=== PATIENT | male | born 1980 | race Hispanic/Latino ===

== ENCOUNTER 2017-10-11 17:21 | Inpatient (IN) | payer SELFPAY ==
[~2017-10-11] VITALS: Ht 172.7 cm; Wt 99.9 kg
[~2017-10-11 17:21] MED LIST: CLONAZEPAM1 MG PO; HYDROCHLOROTHIA25 MG
[2017-10-11] MEDS ORDERED: ONDANSETRON HCL INJ 2 MG/ML VIAL IV STA (17:41)
[2017-10-11] MEDS ORDERED: FAMOTIDINE 20 MG/2 ML VIAL IV STA (17:41)
[2017-10-11] MEDS ORDERED: LOPERAMIDE HCL 2 MG CAP PO ONE (17:45)
[2017-10-11] MEDS ORDERED: SODIUM CHLORIDE 0.9% 1000ML 1,000 ML IV ONE (17:45)
[2017-10-11] MEDS ORDERED: ONDANSETRON HCL INJ 2 MG/ML VIAL ONE ×2 (17:47→17:50)
[2017-10-11 17:49] LABS: BASOPHILS % 0.3 % (0.0-1.0); EOSINOPHILS # (AUTO) 0.2 (0.0-0.4); EOSINOPHILS % 3.1 % (0.0-6.0); HEMATOCRIT 51.1 % (38.2-49.6); HEMOGLOBIN 17.7 g/dL (14.0-18.0); LYMPHOCYTES % 14.2 % (18.0-39.1); MEAN CORPUSCULAR HGB CONC 34.6 g/dL (31-35); MEAN CORPUSCULAR VOLUME 80.9 fL (81-99); MONOCYTES # (AUTO) 0.6 (0.2-0.8); MONOCYTES % 8.7 % (4.4-11.3); NEUTROPHILS # (AUTO) 5.2 (2.1-6.9); NEUTROPHILS % 73.4 % (38.7-80.0); PLATELET COUNT 245 x10e3/uL (140-360); RED BLOOD COUNT 6.32 x10e6/uL (4.3-5.7); RED CELL DISTRIBUTION WIDTH 12.9 % (11.7-14.4)
[2017-10-11] MEDS ORDERED: SODIUM CHLORIDE 0.9% 1000ML 1,000 ML ONE (17:50)
[2017-10-11 18:00] LABS: ALANINE AMINOTRANSFERASE 37 IU/L (0-55); ALBUMIN 4.2 g/dL (3.5-5.0); ALKALINE PHOSPHATASE 85 IU/L (40-150); ANION GAP 11.9 mmol/L (8-16); BLOOD UREA NITROGEN 17 mg/dL (7-26); BUN/CREATININE RATIO 17 (6-25); CALCIUM 9.4 mg/dL (8.4-10.2); CARBON DIOXIDE 25 mmol/L (22-29); CHLORIDE 105 mmol/L (98-107); CREATININE, SERUM 1.03 mg/dL (0.72-1.25); EST GLOMERULAR FILTRATION RATE > 60 ML/MIN (60-); GLUCOSE 99 mg/dL (74-118); LIPASE 14 U/L (8-78); POTASSIUM 3.9 mmol/L (3.5-5.1); SODIUM 138 mmol/L (136-145)
--- NOTE | 2017-10-11 18:35 | Diagnostic Imaging Report ---
PROCEDURE:X-RAY ABDOMEN, ACUTE SERIES COMPARISON:None. INDICATIONS:DIFFUSE ABDOMEN PAIN, NAUSEA, VOMITING, DIARRHEA FINDINGS: Multiple air-fluid levels in the midabdomen within small bowel loops with multiple stairstep appearance. There are no masses or abnormal calcifications. Visualized portions of the lung bases are clear. There is no evidence of free air. No acute osseous abnormalities are present. CONCLUSION: Small bowel obstruction. Dictated by: Cesar Castellanos M.D. on 10/11/2017 at 18:35 Electronically approved by: Cesar Castellanos M.D. on 10/11/2017 at 18:35
[2017-10-11] MEDS ORDERED: DIATRIZOATE MEGL/DIATRIZOA SOD 30 ML BTL PO ONE (19:15)
--- NOTE | 2017-10-11 20:37 | Diagnostic Imaging Report ---
EXAM: Right Upper Quadrant Ultrasound INDICATION: Abdominal pain, nausea vomiting, elevated bilirubin COMPARISON: None. TECHNIQUE: Transverse and longitudinal images of the right upper abdomen were obtained. FINDINGS: Limited examination due to overlying bowel gas. Liver: Size: 15.3 cm in the right midclavicular line, normal Appearance: Increased echogenicity, smooth contour Mass: No focal masses Gallbladder: Stones/Sludge: None Wall: 0.2 cm Appearance: No wall thickening, pericholecystic fluid or hydrops. Sonographic Tracy's Sign: Negative Bile Ducts: Intrahepatic Ducts: No dilatation Extrahepatic Ducts: Common bile duct measures 0.4 cm, no dilatation Pancreas: The pancreas is poorly visualized due to overlying bowel gas. Kidneys: Length: Right 10.7 cm Echogenicity: Normal Collecting System: No hydronephrosis Stone: None Cyst/Mass: None Vessels: Aorta: Visualized portions are normal Inferior Vena Cava: Visualized portions are normal Main Portal Vein: 1.0 cm, normal size with hepatopetal flow. Free Fluid: No ascites or pleural effusion IMPRESSION: No cholelithiasis. No gallbladder wall thickening or pericholecystic fluid. Hepatic steatosis. Signed by: Dr. Emmanuel Parr M.D. on 10/11/2017 8:34 PM
--- NOTE | 2017-10-11 21:45 | Diagnostic Imaging Report ---
EXAM: CT ABDOMEN/PELVIS WO DATE: 10/11/2017 7:02 PM INDICATION: Abdominal pain, nausea, vomiting, diarrhea COMPARISON: 08/27/2016 TECHNIQUE: The abdomen and pelvis were scanned using a multidetector helical scanner. Coronal and sagittal reformations were obtained. Routine protocol performed. IV Contrast: 0 ml Isovue 370 FINDINGS: Lack of IV contrast decreases sensitivity in evaluating abdominal and pelvic organs. Oral contrast was administered. LOWER THORAX: Stable incidental 3 mm right lower lobe nodule and calcified granuloma. LIVER/BILIARY: No masses. No ductal dilatation. GALLBLADDER: Unremarkable SPLEEN: Unremarkable PANCREAS: Unremarkable ADRENALS: No nodules KIDNEYS: Punctate nonobstructing bilateral renal calculi. No hydronephrosis. GI TRACT: Mild gastric and proximal small bowel dilation with relative transition point anteriorly in the infraumbilical mid abdomen (image 64). Diverticulosis. Normal appendix. VESSELS: Unremarkable PERITONEUM/RETROPERITONEUM: No free air or fluid LYMPH NODES: No lymphadenopathy REPRODUCTIVE ORGANS/BLADDER: Unremarkable SOFT TISSUES: Stable tiny fat-containing umbilical hernia BONES: No suspicious bone lesions. IMPRESSION: Findings of partial/early small bowel obstruction, with transition point anteriorly in the lower mid abdomen. Signed by: Dr Neisha Metzger MD on 10/11/2017 9:42 PM
[2017-10-11] MEDS ORDERED: FAMOTIDINE 20 MG/2 ML VIAL IV ONE (21:46)
[2017-10-11] MEDS ORDERED: MORPHINE SULFATE 2 MG/ML SYR IV PRN (22:00)
[2017-10-11] MEDS ORDERED: METRONIDAZOLE 500MG/NS 100ML IV SCH (22:00)
[2017-10-11] MEDS ORDERED: ONDANSETRON HCL INJ 2 MG/ML VIAL IV PRN (22:00)
[2017-10-11] MEDS ORDERED: CEFOXITIN 1GM/ DEXTROSE 50ML ML IV SCH (22:00)
--- OUTSIDE RECORDS SUMMARY | 2017-10-11 22:03 | XMS REPORT ---
[facility] Address Unknown Phone Unavailable Care Team Providers Care Financial Advisor Name Role Phone MICHAEL CARLOS Unavailable Unavailable Problems This patient has no known problems. Allergies, Adverse Reactions, Alerts This patient has no known allergies or adverse reactions. Medications This patient has no known medications. Results Test Description Test Time Test Comments Text Results Atomic Results Result Comments CT ABDOMEN/PELVIS WO [place] [address] Patient Name: FELIX NARAYANAN MR #: [id number] : 1980 Age/Sex: 37/M Req # : [id number] Adm Physician: Ordered by: ELENA CORNEJO MD Report # : [id number] Location: ER Room/Bed: Procedure: [id number] CT/CT ABDOMEN/PELVIS WO Exam Date: Exam Time : REPORT STATUS: Signed EXAM: CT ABDOMEN/PELVIS WO DATE: 10/11/2017 7 :02 PM INDICATION: Abdominal pain, nausea, vomiting, diarrhea COMPARISON : 08/27/2016 TECHNIQUE: The abdomen and pelvis were scanned using a multidetector helical scanner. Coronal and sagittal reformations were obtained. Routine protocol performed. IV Contrast: 0 ml Isovue 370 FINDINGS: Lack of IV contrast decreases sensitivity in evaluating abdominal and pelvic organs. Oral contrast was administered. LOWER THORAX: Stable incidental 3 mm right lower lobe nodule and calcified granuloma. LIVER/ BILIARY: No masses. No ductal dilatation. GALLBLADDER: Unremarkable SPLEEN: Unremarkable PANCREAS: Unremarkable ADRENALS: No nodules KIDNEYS: Punctate nonobstructing bilateral renal calculi. No hydronephrosis. GI TRACT: Mild gastric and proximal small bowel dilation with relative transition point anteriorly in the infraumbilical mid abdomen (image 64). Diverticulosis. Normal appendix. VESSELS: Unremarkable PERITONEUM/ RETROPERITONEUM: No free air or fluid LYMPH NODES: No lymphadenopathy REPRODUCTIVE ORGANS/BLADDER: Unremarkable SOFT TISSUES: Stable tiny fat- containing umbilical hernia BONES: No suspicious bone lesions. IMPRESSION : Findings of partial/early small bowel obstruction, with transition point anteriorly in the lower mid abdomen. Signed by: Dr Dulce Metzger MD on 9:42 PM Dictated By: DULCE METZGER MD 41 Transcribed By: RUPA on 10/11/172141 COPY TO: ELENA CORNEJO MD ABDOMEN ACUTE SERIES W/PA CXR [place] [address] Patient Name: FELIX NARAYANAN MR #: [id number] : 1980 Age/Sex: 37/M Req #: [id number] Adm Physician: Ordered by: MICHAEL CARLOS MD Report #: [id number] Location: ER Room/Bed: Procedure: [id number] DX/ABDOMEN ACUTE SERIES W/PA CXR Exam Date: 10/11/17 Exam Time: 1815 REPORT STATUS: Signed PROCEDURE : X-RAY ABDOMEN, ACUTE SERIES COMPARISON: None. INDICATIONS: DIFFUSE ABDOMEN PAIN, NAUSEA, VOMITING, DIARRHEA FINDINGS: Multiple air-fluid levels in the midabdomen within small bowel loops with multiple stairstep appearance. There are no masses or abnormal calcifications. Visualized portions of the lung bases are clear. There is no evidence of free air. No acute osseous abnormalities are present. CONCLUSION: Small bowel obstruction. Dictated by: Kb Herr M.D. on 10/11/2017 at 18:35 Electronically approved by: Kb Herr M.D. on 2017 at 18:35 Dictated By: KB HERR MD 34 Transcribed By: ED on 10/11/171834 COPY TO: MICHAEL CARLOS MD US GALLBLADDER [place] [address] Patient Name: FELIX NARAYANAN MR #: [id number] : 1980 Age/Sex: 37/M Req #: [id number] Adm Physician: Ordered by: MICHAEL CARLOS MD Report #: [id number] Location: ER Room/Bed: Procedure: [id number] US/US GALLBLADDER Exam Date: 10/11/17 Exam Time: 1957 REPORT STATUS: Signed EXAM: Right Upper Quadrant Ultrasound INDICATION: Abdominal pain, nausea vomiting, elevated bilirubin COMPARISON: None. TECHNIQUE: Transverse and longitudinal images of the right upper abdomen were obtained. FINDINGS: Limited examination due to overlying bowel gas. Liver: Size: 15.3 cm in the right midclavicular line, normal Appearance: Increased echogenicity, smooth contour Mass: No focal masses Gallbladder: Stones/Sludge: None Wall: 0.2 cm Appearance : No wall thickening, pericholecystic fluid or hydrops. Sonographic Tracy' s Sign: Negative Bile Ducts: Intrahepatic Ducts: No dilatation Extrahepatic Ducts: Common bile duct measures 0.4 cm, no dilatation Pancreas: The pancreas is poorly visualized due to overlying bowel gas. Kidneys: Length: Right 10.7 cm Echogenicity: Normal Collecting System: No hydronephrosis Stone: None Cyst/Mass: None Vessels: Aorta: Visualized portions are normal Inferior Vena Cava: Visualized portions are normal Main Portal Vein: 1.0 cm, normal size with hepatopetal flow. Free Fluid: No ascites or pleural effusion IMPRESSION: No cholelithiasis. No gallbladder wall thickening or pericholecystic fluid. Hepatic steatosis. Signed by: Dr. Sumit Parr M.D. on 10/11/2017 8:34 PM Dictated By: SUMIT PARR MD 33 Transcribed By: RUPA on 10/11/172033 COPY TO: MICHAEL CARLOS MD
[2017-10-11] MEDS ORDERED: BENZOCAINE/TETRACAINE/BUTAMBEN AERO SPRAY 56 GM CAN TOP ONE (22:30)
[2017-10-11] MEDS: CEFOXITIN 1GM/ DEXTROSE 50ML 50 ML IV SCH (23:31)
[2017-10-11] MEDS: SODIUM CHLORIDE 0.9% 1000ML 1,000 ML IV SCH (23:31)
[2017-10-11] MEDS: SODIUM CHLORIDE 0.9% 250ML IRRIG IR SCH (23:37)
[2017-10-12] VITALS (8 sets, daily range): BP systolic 126–140; BP diastolic 69–94
[2017-10-12] MEDS: METRONIDAZOLE 500MG/NS 100ML 100 ML IV SCH ×3 (01:00→11:26)
[2017-10-12] MEDS: SODIUM CHLORIDE 0.9% 250ML IRRIG IR SCH ×6 (03:25→22:00)
[2017-10-12] MEDS: CEFOXITIN 1GM/ DEXTROSE 50ML 50 ML IV SCH ×3 (06:48→21:52)
[2017-10-12] MEDS: SODIUM CHLORIDE 0.9% 1000ML 1,000 ML IV SCH ×3 (06:49→21:57)
[2017-10-12 07:23] LABS: BASOPHILS % 0.3 % (0.0-1.0); EOSINOPHILS # (AUTO) 0.1 (0.0-0.4); EOSINOPHILS % 2.1 % (0.0-6.0); HEMATOCRIT 45.3 % (38.2-49.6); HEMOGLOBIN 15.1 g/dL (14.0-18.0); LYMPHOCYTES # (AUTO) 1.7 (1.0-3.2); LYMPHOCYTES % 27.7 % (18.0-39.1); MEAN CORPUSCULAR HEMOGLOBIN 27.7 pg (28-32); MEAN CORPUSCULAR HGB CONC 33.3 g/dL (31-35); MEAN CORPUSCULAR VOLUME 83.1 fL (81-99); MONOCYTES # (AUTO) 0.8 (0.2-0.8); NEUTROPHILS # (AUTO) 3.6 (2.1-6.9); NEUTROPHILS % 57.6 % (38.7-80.0); PLATELET COUNT 216 x10e3/uL (140-360); RED BLOOD COUNT 5.45 x10e6/uL (4.3-5.7); RED CELL DISTRIBUTION WIDTH 13.2 % (11.7-14.4)
--- NOTE | 2017-10-12 07:43 | Consultation ---
DATE OF CONSULTATION: October 12, 2017 The patient is a 37-year-old male who presents with complaints of abdominal pain with diarrhea, and also nausea and vomiting one time. Patient says symptoms started yesterday, but they are better today. He says his pain is gone. He has no more nausea. He came to the emergency room where evaluation of x-rays revealed findings suggestive of partial small-bowel obstruction. Patient says he is passing flatus now. He has had no previous abdominal surgery. PAST MEDICAL HISTORY: The patient has a history of hypertension. MEDICATIONS: Clonazepam and hydrochlorothiazide. PAST SURGICAL HISTORY: He has had no previous surgery. ALLERGIES: SHRIMP. NO ALLERGIES TO MEDICATIONS. FAMILY HISTORY: Noncontributory. SOCIAL HISTORY: The patient does not smoke cigarettes or drink alcohol. REVIEW OF SYSTEMS: Is as stated above, otherwise was negative. He has had no fever. No weight loss. PHYSICAL EXAMINATION GENERAL: The patient is awake, alert and in no distress. VITALS: Normal. He is not tachycardic. HEENT: Reveals no scleral icterus. NECK: Has no masses. LUNGS: Equal breath sounds are clear bilaterally. CARDIAC: Regular rate and rhythm. No murmur. ABDOMEN: Soft. There is no tenderness. No mass. There are no signs of peritonitis. EXTREMITIES: Have no edema. Pulses are palpable. NEUROLOGIC: Intact. ASSESSMENT: This is a 37-year-old male with symptoms most suggestive of acute gastroenteritis although x-ray suggests small-bowel obstruction. Clinically, this does not appear to be the case. PLAN: Repeat the abdominal x-ray today. If the is improved, likely we can remove his NG tube and start him on a liquid diet. There are no findings to suggest acute surgical abdomen that would require immediate surgical intervention. Thank you for asking me to see Mr. Davis. Job#: [id number] SHAI
[2017-10-12 07:50] LABS: ALANINE AMINOTRANSFERASE 25 IU/L (0-55); ALBUMIN 3.4 g/dL (3.5-5.0); ALKALINE PHOSPHATASE 64 IU/L (40-150); ANION GAP 10.1 mmol/L (8-16); BILIRUBIN,DIRECT 0.7 mg/dL (0.0-0.5); BLOOD UREA NITROGEN 17 mg/dL (7-26); BUN/CREATININE RATIO 15 (6-25); CALCIUM 8.4 mg/dL (8.4-10.2); CARBON DIOXIDE 26 mmol/L (22-29); CHLORIDE 108 mmol/L (98-107); CREATININE, SERUM 1.17 mg/dL (0.72-1.25); EST GLOMERULAR FILTRATION RATE > 60 ML/MIN (60-); GLUCOSE 97 mg/dL (74-118); POTASSIUM 4.1 mmol/L (3.5-5.1); SODIUM 140 mmol/L (136-145)
[2017-10-12 08:06] LABS: PHOSPHORUS 3.6 MG/DL (2.3-4.7)
[2017-10-12] MEDS: FAMOTIDINE 20 MG/2 ML VIAL IV SCH ×2 (09:15→16:18)
--- NOTE | 2017-10-12 10:42 | Diagnostic Imaging Report ---
PROCEDURE:ABDOMEN COMP INCL UPR OR DECUB TECHNIQUE:Supine and upright views abdomen totaling 5 radiographs INDICATION:Small bowel obstruction COMPARISON:Patients [facility], CT, CT ABDOMEN/PELVIS WO, 10/11/2017, 20:45. FINDINGS: Nasogastric tube tip at the gastric antrum. Progression of enteric contrast to the rectum. Persistent distention of the jejunum with air-fluid level. Gaseous small bowel distention to 4.5 cm. No evidence of organomegaly or ascites. Irregular calcifications. Intact skeleton. CONCLUSION: Persistent small bowel distention with progression of enteric contrast to the rectum. Findings are most in keeping with partial small bowel obstruction. Dictated by: José Luis Li M.D. on 10/12/2017 at 10:43 Electronically approved by: José Luis Li M.D. on 10/12/2017 at 10:43
--- NOTE | 2017-10-12 22:37 | History and Physical ---
PRIMARY CARE PHYSICIAN: None CHIEF COMPLAINT: Abdominal pain, nausea, vomiting, and diarrhea. HISTORY OF PRESENT ILLNESS: This is a 37-year-old male with a history of nephrolithiasis, now developing midabdominal pain, sharp with nausea, vomiting and diarrhea. Therefore, he came to the hospital. Here he was found to have partial small-bowel obstruction and admitted for further evaluation and management. Denies any fever. PAST MEDICAL HISTORY: Nephrolithiasis. PAST SURGICAL HISTORY: None. ALLERGIES: PER ELECTRONIC MEDICAL RECORD. FAMILY HISTORY/SOCIAL HISTORY: Patient is single. Occasional alcohol. No cigarettes. MEDICATIONS: Per electronic medical record. REVIEW OF SYSTEMS: Denies any dizziness or chest pain. PHYSICAL EXAMINATION VITAL SIGNS: Reviewed. GENERAL: A tired-appearing man resting in bed with an NG tube in place. CARDIOVASCULAR: Normal S1 and S2. LUNGS: Moderate breath sounds. ABDOMEN: Soft and nondistended. He has tenderness in the midabdomen. No rebound or guarding. EXTREMITIES: No edema or calf tenderness. NEUROLOGICAL: Alert and oriented times 3. Moving all extremities. SKIN: Dry. PSYCHIATRIC: Flat affect. LABS: Reviewed. MEDICATIONS: Reviewed. ASSESSMENT AND PLAN: This is a 37-year-old man with: 1. Partial small-bowel obstruction: Will keep the patient n.p.o. He has a nasogastric tube in place. Will continue with intravenous fluids. Will ambulate the patient throughout the day. Consult physical therapy. Surgery has been consulted. 2. Hyperbilirubinemia: Will recheck levels today and rehydrate the patient. 3. Obesity: Body mass index 34.1. Obtain hemoglobin A1c and lipid panel. 4. Hypertension: Currently, medications have been held. Will use clonidine patch if needed. 5. Acute gastroenteritis: Will continue with cefoxitin and metronidazole. 6. Prophylaxis: Sequential compression devices and intravenous Pepcid. 7. Disposition: Optimize electrolytes. Check magnesium and phosphorus levels. Potassium replaced and normal. Ambulate the patient. Job#: [id number] SHAI
[2017-10-13] VITALS (9 sets, daily range): BP systolic 133–154; BP diastolic 75–96
[2017-10-13] MEDS: SODIUM CHLORIDE 0.9% 250ML IRRIG IR SCH ×3 (02:00→09:40)
[2017-10-13] MEDS: SODIUM CHLORIDE 0.9% 1000ML 1,000 ML IV SCH ×3 (05:57→17:08)
--- NOTE | 2017-10-13 08:18 | Progress Note ---
DATE: October 13, 2017 TIME: 7 a.m. OVERNIGHT: Remains with NG tube. No abdominal pain. REVIEW OF SYSTEMS: Denies any dizziness or chest pain. PHYSICAL EXAMINATION VITAL SIGNS: Reviewed. GENERAL: A tired-appearing man resting in bed. HEENT: Anicteric. He has an NG tube in place. CARDIOVASCULAR: Normal S1 and S2. LUNGS: Moderate breath sounds. ABDOMEN: Soft, nontender and nondistended. EXTREMITIES: No edema. SKIN: Dry. PSYCHIATRIC: Normal affect. LABS: Reviewed. MEDICATIONS: Reviewed. ASSESSMENT: A 37-year-old man with: 1. Partial small-bowel obstruction. 2. Hyperbilirubinemia. 3. Obesity. 4. Hypertension. 5. Acute gastroenteritis. PLAN 1. Optimize electrolytes. Potassium is 4.1. Follow up labs. 2. Improving bilirubin, now 1.4. 3. Use empiric Flagyl. 4. NG tube per surgical team. 5. Hemoglobin A1c 4.6, LDL 78 and triglycerides 38. 6. Continue Pepcid and SCD. 7. Disposition. Follow closely. Follow up surgical recommendations. Job#: [id number] [place]
[2017-10-13] MEDS: FAMOTIDINE 20 MG/2 ML VIAL IV SCH ×2 (08:47→16:45)
--- NOTE | 2017-10-13 12:03 | Diagnostic Imaging Report ---
PROCEDURE:ABDOMEN ACUTE SERIES W/PA CXR COMPARISON:Patients [facility], DX, ABDOMEN COMP INCL UPR OR DECUB, 10/12/2017, 9:44. INDICATIONS:SMALL BOWEL OBSTRUCTION FINDINGS: CHEST: No mass or infiltrate. Mediastinum is normal in morphology. The right vascular markings are normal. BOWEL PATTERN: Enteric has retracted into the proximal stomach. The stomach is collapsed. There is little to no air in the small bowel. There is a small amount of air throughout the large bowel. Several diverticula in the distal descending/proximal sigmoid colon are present. Enteric contrast in the large bowel has been evacuated. There are no air-fluid levels. No pneumatosis. No free air. CALCIFICATIONS: No calcifications over the renal shadows or along expected course of the ureters. An oval-shaped certified medical biller in the right pelvis is stable. SOFT TISSUES: Unremarkable BONES: Unremarkable CONCLUSION: 1. Little to no small bowel air. No bowel dilatation. Evacuation of enteric contrast from the large bowel. 2. Clear lungs. 3. NG tube as described above. Dictated by: Bettye Mendoza M.D. on 10/13/2017 at 12:03 Electronically approved by: Bettye Mendoza M.D. on 10/13/2017 at 12:03
[2017-10-13] MEDS: METRONIDAZOLE 500MG/NS 100ML 100 ML IV SCH ×2 (14:04→21:36)
[2017-10-14 00:37] VITALS: BP 143/88
[2017-10-14 04:00] VITALS: BP 134/77
[2017-10-14] MEDS: SODIUM CHLORIDE 0.9% 1000ML 1,000 ML IV SCH (05:57)
[2017-10-14] MEDS: METRONIDAZOLE 500MG/NS 100ML 100 ML IV SCH (06:25)
[2017-10-14] MEDS ORDERED: FLAGYL500 MG PO (07:22)
[2017-10-14] MEDS ORDERED: SENNA LAXATIVE8.6 MG PO (07:22)
[2017-10-14 07:25] VITALS: BP 135/76
[2017-10-14] MEDS: FAMOTIDINE 20 MG/2 ML VIAL IV SCH (07:53)
[2017-10-14 09:44] VITALS: BP 135/76
== END 2017-10-14 09:54 | disposition home or self-care (01) | DRG 390 ==
LOC: ER 17:21 → ERHOLD 22:01 → MED/SURG 10-12 01:53
PROVIDERS: ADMIT Internal Medicine; ATTEND Internal Medicine
DX: K56.600 Partial intestinal obstruction, unspecified as to cause (principal); I10 Essential (primary) hypertension; Z68.33 Body mass index [BMI] 33.0-33.9, adult; E66.9 Obesity, unspecified; E80.6 Other disorders of bilirubin metabolism
CPT/HCPCS: 36415; 74022; 74176; 76705; 80053; 80061; 82248; 83036; 83690; 83735; 84100; 85025; 99284; J2270; J2405; J7030

== ENCOUNTER 2019-06-21 20:37 | Emergency (ER) | payer SELFPAY ==
[~2019-06-21] VITALS: Ht 172.7 cm; Wt 99.8 kg
[~2019-06-21 20:37] MED LIST changes: +FLAGYL500 MG PO; +SENNA LAXATIVE8.6 MG PO
[2019-06-21] MEDS ORDERED: PENICILLIN G BENZATHINE LA 1.2 MU TBX IM ONE (21:42)
[2019-06-21] MEDS ORDERED: DEXAMETHASONE SOD PHOS 10 MG/1 ML VIAL IM ONE (21:45)
[2019-06-21 22:33] VITALS: BP 138/79
== END 2019-06-21 22:30 | disposition home or self-care (01) ==
LOC: ER 20:37
DX: J02.0 Streptococcal pharyngitis (principal)
CPT/HCPCS: 99282; J0561; J1100

== ENCOUNTER 2020-09-09 07:16 | Emergency (ER) | payer SELFPAY ==
[~2020-09-09] VITALS: Ht 172.7 cm; Wt 100.7 kg
[2020-09-09] MEDS ORDERED: ONDANSETRON HCL INJ 2MG/ML 2ML 2 MG/ML VIAL IV STA (07:24)
[2020-09-09] MEDS ORDERED: SODIUM CHLORIDE 0.9% 1000ML 1,000 ML IV STA (07:24)
[2020-09-09] MEDS ORDERED: PANTOPRAZOLE 40 MG 10ML VIAL IV STA (07:24)
[2020-09-09] MEDS ORDERED: KETOROLAC TROMETHAMINE 30 MG/ML VIAL IV STA (07:24)
[2020-09-09 07:42] LABS: BASOPHILS # (AUTO) 0.1 (0.0-0.1); BASOPHILS % 0.5 % (0.0-1.0); EOSINOPHILS % 0.4 % (0.0-6.0); HEMATOCRIT 49.8 % (38.2-49.6); HEMOGLOBIN 16.7 g/dL (14.0-18.0); LYMPHOCYTES # (AUTO) 1.1 (1.0-3.2); LYMPHOCYTES % 9.6 % (18.0-39.1); MEAN CORPUSCULAR HEMOGLOBIN 27.2 pg (28-32); MEAN CORPUSCULAR HGB CONC 33.5 g/dL (31-35); MEAN CORPUSCULAR VOLUME 81.1 fL (81-99); MONOCYTES # (AUTO) 0.6 (0.2-0.8); NEUTROPHILS # (AUTO) 9.4 (2.1-6.9); PLATELET COUNT 264 x10e3/uL (140-360); RED BLOOD COUNT 6.14 x10e6/uL (4.3-5.7); RED CELL DISTRIBUTION WIDTH 13.2 % (11.7-14.4)
[2020-09-09 07:54] LABS: CLARITY,URINE CLEAR (CLEAR); COLOR,URINE YELLOW (YELLOW); LEUKOCYTE ESTERASE ,URINE NEGATIVE (NEGATIVE); NITRITE,URINE NEGATIVE (NEGATIVE)
[2020-09-09 07:55] LABS: KETONES,URINE TRACE (NEGATIVE); PROTEIN,URINE DIPSTICK TRACE (NEGATIVE); URINE UROBILINOGEN 0.2 mg/dL (0.2 - 1)
[2020-09-09 07:59] LABS: BACTERIA,URINE RARE /HPF; EPITHELIAL CELLS,URINE FEW /LPF; WBC,URINE (MAN) 21-50 /HPF (0-5)
[2020-09-09 08:07] LABS: ALBUMIN 4.2 g/dL (3.5-5.0); ALBUMIN/GLOBULIN RATIO 1.1 (0.8-2.0); ANION GAP 13.9 mmol/L (8-16); CALCIUM 9.3 mg/dL (8.4-10.2); CREATININE, SERUM 1.48 mg/dL (0.72-1.25); MAGNESIUM 1.6 MG/DL (1.3-2.1); POTASSIUM 3.9 mmol/L (3.5-5.1)
[2020-09-09] MEDS ORDERED: TERAZOSIN HCL 1 MG CAP PO STA (08:09)
[2020-09-09] MEDS ORDERED: CEFTRIAXONE SOD 1 GM in SODIUM CHLORIDE 0.9% 50ML 50 ML IV ONE (08:15)
== END 2020-09-09 09:08 | disposition home or self-care (01) ==
LOC: ER 08:03
DX: R10.32 Left lower quadrant pain (principal); M54.5 Low back pain; N20.1 Calculus of ureter; K57.90 Diverticulosis of intestine, part unspecified, without perforation or abscess without bleeding; K40.20 Bilateral inguinal hernia, without obstruction or gangrene, not specified as recurrent; I10 Essential (primary) hypertension
CPT/HCPCS: 36415; 74176; 80053; 81001; 83690; 83735; 85025; 87086; 99284; C9113; J0696; J1885; J2405; J7030

== ENCOUNTER 2022-02-06 20:47 | Emergency (ER) | payer SELFPAY ==
[~2022-02-06] VITALS: Ht 170.2 cm; Wt 100.7 kg
[2022-02-06] MEDS ORDERED: PROAIR HFA INH8.5 GM IH (22:11)
[2022-02-06] MEDS ORDERED: IBUPROFEN800 MG PO (22:11)
[2022-02-06] MEDS ORDERED: MUCINEX DM ER1 EAC1 PO (22:11)
[2022-02-06 22:24] VITALS: BP 162/113
== END 2022-02-06 22:20 | disposition home or self-care (01) ==
LOC: ER 20:51
DX: R05.9 Cough, unspecified (principal); U07.1 COVID-19; J45.909 Unspecified asthma, uncomplicated; Z87.442 Personal history of urinary calculi
CPT/HCPCS: 71045; 99283; U0002

== ENCOUNTER 2022-04-04 16:33 | Emergency (ER) | payer SELFPAY ==
[~2022-04-04] VITALS: Ht 170.2 cm; Wt 100.7 kg
[~2022-04-04 16:33] MED LIST changes: +IBUPROFEN800 MG PO; +MUCINEX DM ER1 EAC1 PO; +PROAIR HFA INH8.5 GM IH
[2022-04-04] MEDS ORDERED: ONDANSETRON HCL INJ 2MG/ML 2ML 2 MG/ML VIAL IV STA (17:12)
[2022-04-04] MEDS ORDERED: KETOROLAC TROMETHAMINE 30 MG/ML VIAL IV STA (17:12)
[2022-04-04] MEDS ORDERED: SODIUM CHLORIDE 0.9% 1000ML 1,000 ML IV STA (17:12)
[2022-04-04 17:22] LABS: BASOPHILS # (AUTO) 0.1 (0.0-0.1); BASOPHILS % 0.7 % (0.0-1.0); EOSINOPHILS # (AUTO) 0.3 (0.0-0.4); EOSINOPHILS % 3.1 % (0.0-6.0); HEMATOCRIT 49.9 % (38.2-49.6); HEMOGLOBIN 16.7 g/dL (14.0-18.0); LYMPHOCYTES # (AUTO) 2.6 (1.0-3.2); LYMPHOCYTES % 24.3 % (18.0-39.1); MEAN CORPUSCULAR HEMOGLOBIN 27.8 pg (28-32); MEAN CORPUSCULAR HGB CONC 33.5 g/dL (31-35); MONOCYTES # (AUTO) 0.8 (0.2-0.8); MONOCYTES % 7.5 % (4.4-11.3); NEUTROPHILS # (AUTO) 6.8 (2.1-6.9); PLATELET COUNT 265 x10e3/uL (140-360); RED BLOOD COUNT 6.01 x10e6/uL (4.3-5.7); RED CELL DISTRIBUTION WIDTH 12.9 % (11.7-14.4)
[2022-04-04 17:34] LABS: COLOR,URINE YELLOW (YELLOW)
[2022-04-04 17:35] LABS: CLARITY,URINE HAZY (CLEAR); KETONES,URINE TRACE (NEGATIVE); LEUKOCYTE ESTERASE ,URINE NEGATIVE (NEGATIVE); NITRITE,URINE NEGATIVE (NEGATIVE); PROTEIN,URINE DIPSTICK 1+ (NEGATIVE); URINE UROBILINOGEN 0.2 mg/dL (0.2 - 1)
[2022-04-04 17:36] LABS: BACTERIA,URINE FEW /HPF; EPITHELIAL CELLS,URINE RARE /LPF; MUCUS,URINE MODERATE (RARE); RBC,URINE >50 /HPF (0-5); WBC,URINE (MAN) 0-5 /HPF (0-5)
[2022-04-04 17:39] LABS: ALBUMIN 4.1 g/dL (3.5-5.0); ALBUMIN/GLOBULIN RATIO 1.1 (0.8-2.0); ANION GAP 20.7 mmol/L (8-16); CREATININE, SERUM 1.29 mg/dL (0.72-1.25); POTASSIUM 3.7 mmol/L (3.5-5.1)
[2022-04-04] MEDS ORDERED: HYDRALAZINE HCL 20 MG/ML VIAL IV STA ×2 (18:01→18:44)
[2022-04-04 20:12] VITALS: BP 166/110
== END 2022-04-04 20:19 | disposition other institution (70) ==
LOC: ER 16:50
DX: I16.0 Hypertensive urgency (principal); N13.2 Hydronephrosis with renal and ureteral calculous obstruction; R11.2 Nausea with vomiting, unspecified; R10.30 Lower abdominal pain, unspecified; J45.909 Unspecified asthma, uncomplicated; Z20.822 Contact with and (suspected) exposure to COVID-19
CPT/HCPCS: 36415; 74176; 80053; 81001; 83690; 85025; 99284; J0360; J1885; J2405; J7030; U0002

== ENCOUNTER 2024-10-09 07:26 | Emergency (ER) | payer OTHER ==
[~2024-10-09] VITALS: Ht 172.7 cm; Wt 113.4 kg
[~2024-10-09 07:26] MED LIST changes: +CIPRO500 MG PO; +CYCLOBENZAPRINE10 MG PO; +LIDOCAINE1 EACH EXT; +METRONIDAZOLE500 MG PO; +NAPROXEN250 MG PO; +ONDANSETRON ODT4 MG PO; +ULTRAM 50MG50 MG PO
[2024-10-09 07:48] VITALS: TEMP 98.1
[2024-10-09] MEDS: SODIUM CHLORIDE 0.9% 1000ML 1,000 ML IV STA (08:04)
[2024-10-09] MEDS: ONDANSETRON HCL INJ 2MG/ML 2ML 2 MG/ML VIAL IV STA (08:05)
[2024-10-09 08:09] LABS: BASOPHILS # (AUTO) 0.1 (0.0-0.1); BASOPHILS % 0.8 % (0.0-1.0); EOSINOPHILS # (AUTO) 0.4 (0.0-0.4); EOSINOPHILS % 5.6 % (0.0-6.0); HEMATOCRIT 46.8 % (38.2-49.6); HEMOGLOBIN 16.1 g/dL (14.0-18.0); LYMPHOCYTES # (AUTO) 2.6 (1.0-3.2); LYMPHOCYTES % 39.8 % (18.0-39.1); MEAN CORPUSCULAR HEMOGLOBIN 27.9 pg (28-32); MEAN CORPUSCULAR HGB CONC 34.4 g/dL (31-35); MONOCYTES # (AUTO) 0.6 (0.2-0.8); NEUTROPHILS # (AUTO) 2.9 (2.1-6.9); NEUTROPHILS % 44.3 % (38.7-80.0); PLATELET COUNT 242 x10e3/uL (140-360); RED BLOOD COUNT 5.78 x10e6/uL (4.3-5.7); RED CELL DISTRIBUTION WIDTH 13.3 % (11.7-14.4); WHITE BLOOD COUNT 6.46 x10e3/uL (4.8-10.8)
[2024-10-09] MEDS: KETOROLAC TROMETHAMINE 30 MG/ML VIAL IV STA (08:13)
[2024-10-09 08:19] LABS: INR 0.94; PROTHROMBIN TIME 13.2 seconds (11.9-14.5)
[2024-10-09 08:20] LABS: PARTIAL THROMBOPLASTIN TIME 28.8 seconds (23.8-35.5)
[2024-10-09 08:32] LABS: ALBUMIN 3.9 g/dL (3.5-5.0); ALBUMIN/GLOBULIN RATIO 1.1 (0.8-2.0); ANION GAP 12.5 mmol/L (8-16); CALCIUM 8.7 mg/dL (8.4-10.2); CREATININE, SERUM 1.16 mg/dL (0.72-1.25); POTASSIUM 3.5 mmol/L (3.5-5.1); TOTAL PROTEIN 7.3 g/dL (6.5-8.1)
[2024-10-09 08:33] LABS: BILIRUBIN,URINE NEGATIVE (NEGATIVE); CLARITY,URINE CLEAR (CLEAR); COLOR,URINE YELLOW (YELLOW); GLUCOSE, URINE NEGATIVE (NEGATIVE); KETONES,URINE NEGATIVE (NEGATIVE); LEUKOCYTE ESTERASE ,URINE NEGATIVE (NEGATIVE); NITRITE,URINE NEGATIVE (NEGATIVE); PH,URINE 6 (5 - 7); PROTEIN,URINE DIPSTICK 1+ (NEGATIVE); URINE UROBILINOGEN 0.2 mg/dL (0.2 - 1)
[2024-10-09] MEDS: Morphine 4mg INJECTION 4 MG/ML INJ IV STA (08:42)
[2024-10-09 08:45] LABS: BACTERIA,URINE MANY /HPF; EPITHELIAL CELLS,URINE RARE /LPF; WBC,URINE (MAN) 0-5 /HPF (0-5)
[2024-10-09] MEDS ORDERED: IOPAMIDOL 370 MG/ML 100 ML INFUS..BTL INJ ONE (09:02)
[2024-10-09 10:33] VITALS: PULSE 75; RESP 12; O2SAT 95
[2024-10-09] MEDS ORDERED: HYDROCODON-ACE1 EA11 PO (10:46)
[2024-10-09] MEDS ORDERED: CEFDINIR300 MG PO (10:46)
[2024-10-09] MEDS ORDERED: FLOMAX0.4 MG PO (10:46)
[2024-10-09] MEDS ORDERED: KETOROLAC TROME10 MG PO (10:46)
[2024-10-09] MEDS ORDERED: ONDANSETRON ODT4 MG PO (10:46)
== END 2024-10-09 11:00 | disposition home or self-care (01) ==
LOC: ER 07:35
DX: R10.32 Left lower quadrant pain (principal); N13.2 Hydronephrosis with renal and ureteral calculous obstruction; R11.0 Nausea; R42 Dizziness and giddiness; I10 Essential (primary) hypertension; E78.5 Hyperlipidemia, unspecified; Z87.442 Personal history of urinary calculi; F17.210 Nicotine dependence, cigarettes, uncomplicated
CPT/HCPCS: 36415; 74177; 80053; 81001; 85025; 85610; 85730; 99284; J1885; J2270; J2405; J7030; Q9967